=== PATIENT | female | born 1960 | race African-American/Black ===

== ENCOUNTER 2022-07-30 10:23 | Inpatient (IN) ==
[2022-07-30] MEDS ORDERED: HYDRALAZINE HCL IVP ONE ×2 (10:41→12:21)
[2022-07-30] MEDS ORDERED: REGLAN IVP ONE ×2 (10:41→15:59)
--- NOTE | 2022-07-30 10:47 | ED.PDOC ---
General ED Provider: Dr. JOANNA PEREZ MD Chief Complaint: Nausea/Vomiting Stated Complaint: mild to mod off and on NV for one day w/ diffuse nonrad abdominal cramps, +dizzy, no loc, given zofran by ems, blood sugar 365, not on home oxygen, hx cva and right residual weakness, hx htn and dm and hysterectomy Time Seen by Provider: 07/30/22 10:28 Mode of Arrival: Ambulance Information Source: Patient Primary Care Provider: SHANI GUTIERREZ APRN Nursing and Triage Documentation Reviewed and Agree: Yes Does patient meet sepsis criteria?: No System Inflammatory Response Syndrome: Not Applicable Sepsis Protocol: For patient's 13 years and over: Temp is 96.8 and below OR 101 and greater Pulse >90 BPM Resp >20/minute Acutely Altered Mental Status Are patient's symptoms suggestive of a new infection, such as: -Pneumonia -Skin, Soft Tissue -Endocarditis -UTI -Bone, Joint Infection -Implantable Device -Acute Abdominal Infection -Wound Infection -Meningitis -Blood Stream Catheter Infection -Unknown Review of Systems Review Of Systems Constitutional: Denies Fever Eyes: Denies Vision change Ears, Nose, Mouth, Throat: Denies Throat pain Respiratory: Denies Short of air or Wheezing Cardiac: Denies Chest pain GI: Reports Abdominal pain and Vomiting : Denies Frequency Musculoskeletal: Denies Neck pain Skin: Denies Rash or Cyanosis Neurological: Denies Cognitive dysfunction, Headache, Numbness or Tingling All Other Systems: Other [facility] Medical History Decreased GFR Essential hypertension Fatigue High cholesterol Insomnia Knee pain, bilateral Left knee pain Mixed hyperlipidemia Obesity (BMI 30-39.9) Right knee pain Screening mammography declined Seasonal allergies Type 2 diabetes mellitus with hemoglobin A1c goal of less than 7.0% Family History Mother Age: 84 Diabetes Hypertension Renal failure Social History Smoking and tobacco status: Current some day smoker Tobacco: How many years used: 4 Passive smoking exposure: Yes Smoking status start date: 03/15/18 Quit status: considering quitting Alcohol intake: former Counseling given: No Nicolette/restorationist: ORTHODOX Special nicolette needs: No Agree to transfusion: Yes Adopted: No Caregiver/support person: No Foster care: No Housing: apartment Marital status: W / Lives independently: Yes Number of children: 4 Number of grandchildren: 1 Highest education level completed: high school graduate Financial difficulty paying for basics: very hard service: No CHCF: No Current occupational status: unemployed Pets and animals: No Leisure activites: other History of recent travel: Yes (From [facility] to [place]) Sexually active: No Do you think of yourself as: straight/heterosexual Current gender identity: female Seatbelt use: always Drives intoxicated or rides with intoxicated motor vehicle escort driver: No Current diet type/program: regular Well-balanced diet: about half the time Caffeine: No Eating out: 1-3 times/week Reads food labels: sometimes During the past year weight has: other Water heater temperature set < 120 degrees: Yes Working smoke detector in home: Yes Fire extinguisher in home: Yes Carbon monoxide detector in home: Yes Firearms in home: Yes What type of physical activity do you participate in?: walking and swimming Physical activity functional status: independent ambulation How many days of moderate to strenuous exercise, like a brisk walk, did you do in the last 7 days: 1 Female Reproductive History Menstrual Hx Hysterectomy: Yes Hx Tubal Ligation: No Date of menopause: 03/16/84 Physical Exam Physical Exam Appearance: Reports No pain distress Ill-appearing: None Pain Distress: None Eyes: Reports ELROY, EOMI and Conjunctiva clear ENT: Reports Oropharynx normal Neck: Supple Respiratory: Reports Airway patent, Breath sounds clear and Breath sounds equal Cardiovascular: Reports RRR GI/: Reports Soft and Nontender Musculoskeletal: Reports No edema and 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) Skin: Reports Warm and Dry Neurological: Reports Alert and Oriented Psychiatric: Reports Affect appropriate Interpretation Radiology Interpretation Radiology Interpretation By: Radiologist Exam Interpreted: CT Scan Xray Comments: no brain bleed, no abd obstruction or free air EKG Interpretation Time of EKG #1: 16:15 Rate: Normal Rhythm: Sinus Interpretation: lvh and prolonged QTc, no stemi Critical Care Note Critical Care Note Total Critical Care Time (mins): 0 Course Course Hematology/Chemistry: 07/30/22 10:55 07/30/22 10:55 Orders, Labs, Meds: Lab Review 07/30/22 07/30/22 07/30/22 10:55 10:55 10:55 WBC 8.53 RBC 3.95 L Hgb 10.5 L Hct 33.8 L MCV 85.6 MCH 26.6 L MCHC 31.1 L RDW Coeff of Shanita 13.0 Plt Count 305 Immature Gran % (Auto) 0.5 Neut % (Auto) 86.4 H Lymph % (Auto) 9.4 L [place] % (Auto) 3.4 Eos % (Auto) 0.1 Baso % (Auto) 0.2 Neut # (Auto) 7.4 H Lymph # (Auto) 0.8 [place] # (Auto) 0.3 L Eos # (Auto) 0.0 Baso # (Auto) 0.0 Immature Gran # (Auto) 0.0 Sodium 137.1 Potassium 3.15 L Chloride 99.1 Carbon Dioxide 28.6 Anion Gap 12.55 BUN 9.7 Creatinine 0.65 Estimated GFR (MDRD) 113.00 BUN/Creatinine Ratio 14.92 Glucose 298.1 H Lactic Acid 1.28 Calcium 9.40 Magnesium Total Bilirubin 0.53 AST 29.7 ALT 16.0 Alkaline Phosphatase 82.6 Troponin I < 0.012 Total Protein 8.22 H Albumin 4.30 Globulin 3.92 Albumin/Globulin Ratio 1.09 Lipase 78.9 Urine Color Urine Clarity Urine pH Ur Specific [place] Urine Protein Urine Glucose (UA) Urine Ketones Urine Blood Urine Nitrite Urine Bilirubin Urine Urobilinogen Ur Leukocyte Esterase Urine Opiates Screen Ur Oxycodone Screen Urine Methadone Screen Ur Propoxyphene Screen Ur Barbiturates Screen U Tricyclic Antidepress Ur Phencyclidine Scrn Ur Amphetamine Screen U Methamphetamines Scrn U Benzodiazepines Scrn Urine Cocaine Screen U Cannabinoids Screen 07/30/22 07/30/22 07/30/22 10:55 12:40 12:40 WBC RBC Hgb Hct MCV MCH MCHC RDW Coeff of Shanita Plt Count Immature Gran % (Auto) Neut % (Auto) Lymph % (Auto) [place] % (Auto) Eos % (Auto) Baso % (Auto) Neut # (Auto) Lymph # (Auto) [place] # (Auto) Eos # (Auto) Baso # (Auto) Immature Gran # (Auto) Sodium Potassium Chloride Carbon Dioxide Anion Gap BUN Creatinine Estimated GFR (MDRD) BUN/Creatinine Ratio Glucose Lactic Acid Calcium Magnesium 1.31 L Total Bilirubin AST ALT Alkaline Phosphatase Troponin I Total Protein Albumin Globulin Albumin/Globulin Ratio Lipase Urine Color Yellow Urine Clarity Clear Urine pH 7.5 Ur Specific [place] 1.015 Urine Protein Negative Urine Glucose (UA) 2+ H Urine Ketones 2+ H Urine Blood Negative Urine Nitrite Negative Urine Bilirubin Negative Urine Urobilinogen 1.0 H Ur Leukocyte Esterase Negative Urine Opiates Screen Negative Ur Oxycodone Screen Negative Urine Methadone Screen Negative Ur Propoxyphene Screen Negative Ur Barbiturates Screen Negative U Tricyclic Antidepress Negative Ur Phencyclidine Scrn Negative Ur Amphetamine Screen Negative U Methamphetamines Scrn Negative U Benzodiazepines Scrn Negative Urine Cocaine Screen Negative U Cannabinoids Screen Negative Orders Category Date Time Status EKG-(ED ONLY) Stat CARDIO 07/30/22 10:41 Completed Straight [STRAIGHT CATH INSERTION] ONCE CARE 07/30/22 12:28 Active CBC W/ AUTO DIFF Stat LAB 07/30/22 10:55 Completed CMP [COMPREHENSIVE METABOLIC PANEL] Stat LAB 07/30/22 10:55 Completed DRUG SCREEN, URINE, RAPID Stat LAB 07/30/22 12:40 Completed LACTIC ACID Stat LAB 07/30/22 10:55 Completed LIPASE Stat LAB 07/30/22 10:55 Completed MAGNESIUM Stat LAB 07/30/22 10:55 Completed TROPONIN I Stat LAB 07/30/22 10:55 Completed URINALYSIS C & S IF INDICATED Stat LAB 07/30/22 12:40 Completed Hydralazine HCl MEDS 07/30/22 10:41 Discontinued 10 mg IVP ONCE ONE Hydralazine HCl MEDS 07/30/22 12:21 Discontinued 10 mg IVP ONCE ONE Labetalol HCl [Trandate] MEDS 07/30/22 13:24 Discontinued 10 mg IVP ONCE ONE Labetalol HCl [Trandate] MEDS 07/30/22 14:52 Discontinued 20 mg IVP ONCE ONE Mag-Al Plus//Lidocaine [Gi Cocktail] MEDS 07/30/22 13:28 Discontinued 30 ml PO ONCE ONE Magnesium Sulfate Bag [Magnesium Sulfate 1 gm/100 ml MEDS 07/30/22 15:54 Active D5w] 1 gm in 100 ml IV ONCE Magnesium Sulfate Vial [Magnesium Sulfate 1 gm/2 ml MEDS 07/30/22 15:18 Discontinued Vial] 1 gm IVP ONCE ONE Metoclopramide HCl [Reglan] MEDS 07/30/22 10:41 Discontinued 10 mg IVP ONCE ONE Metoclopramide HCl [Reglan] MEDS 07/30/22 15:59 Discontinued 10 mg IVP ONCE ONE Nicardipine in NaCl, Iso-Osm [Cardene 20 mg/200 ml NaCl MEDS 07/30/22 16:00 Active ] 20 mg in 200 ml IV TITRATION Pantoprazole Sodium [Protonix IV] MEDS 07/30/22 14:01 Discontinued 40 mg IVP ONCE ONE Potassium Chloride [K-Dur] MEDS 07/30/22 11:55 Discontinued 40 meq PO ONCE ONE Sodium Chloride 0.9% [Sodium Chloride] 1,000 ml MEDS 07/30/22 14:[address] ABDOMEN/PELVIS WO CONTRAST Stat RADS 07/30/22 10:[address] HEAD W/O CONTRAST Stat RADS 07/30/22 10:41 Completed Medications Generic Name Dose Route Start Last Admin Trade Name Freq PRN Reason Stop Dose Admin Magnesium Sulfate/Dextrose 1 gm in 100 mls @ 100 mls/hr 07/30/22 15:54 07/30/22 15:58 Magnesium Sulfate 1 Gm/100 Ml D5w IV 07/30/22 16:53 100 mls/hr ONCE STA Administration Nicardipine/Sodium Chloride 20 mg in 200 mls @ 50 mls/hr 07/30/22 16:00 07/30/22 16:08 Cardene 20 Mg/200 Ml Nacl IV 5 mg/hr TITRATION JOE 50 mls/hr Administration Protocol 5 MG/HR Discontinued Medications Generic Name Dose Route Start Last Admin Trade Name Freq PRN Reason Stop Dose Admin Al Hydroxide/Mg Hydroxide 30 ml 07/30/22 13:28 07/30/22 13:34 Mag-Al Plus//Lidocaine 30 Ml Btl PO 07/30/22 13:29 30 ml ONCE ONE Administration Hydralazine HCl 10 mg 07/30/22 10:41 07/30/22 10:56 Hydralazine Hcl 20 Mg/Ml Sdv IVP 07/30/22 10:42 10 mg ONCE ONE Administration Hydralazine HCl 10 mg 07/30/22 12:21 07/30/22 12:24 Hydralazine Hcl 20 Mg/Ml Sdv IVP 07/30/22 12:22 10 mg ONCE ONE Administration Sodium Chloride 1,000 mls @ 1,000 mls/hr 07/30/22 14:02 07/30/22 14:07 Sodium Chloride IV 07/30/22 15:01 1,000 mls/hr BOLUS STA Administration Labetalol HCl 10 mg 07/30/22 13:24 07/30/22 13:35 Labetalol Hcl 20 Mg/4 Ml Disp.Syrin IVP 07/30/22 13:25 10 mg ONCE ONE Administration Labetalol HCl 20 mg 07/30/22 14:52 07/30/22 15:07 Labetalol Hcl 20 Mg/4 Ml Disp.Syrin IVP 07/30/22 14:53 20 mg ONCE ONE Administration Magnesium Sulfate 1 gm 07/30/22 15:18 07/30/22 15:59 Magnesium Sulfate Vial 1 Gm/2 Ml Vial IVP 07/30/22 15:19 Not Given ONCE ONE Metoclopramide HCl 10 mg 07/30/22 10:41 07/30/22 10:55 Metoclopramide Hcl 10 Mg/2 Ml IVP 07/30/22 10:42 10 mg ONCE ONE Administration Metoclopramide HCl 10 mg 07/30/22 15:59 07/30/22 16:08 Metoclopramide Hcl 10 Mg/2 Ml IVP 07/30/22 16:00 10 mg ONCE ONE Administration Pantoprazole Sodium 40 mg 07/30/22 14:01 07/30/22 14:07 Pantoprazole Sodium 40 Mg Vial IVP 07/30/22 14:02 40 mg ONCE ONE Administration Potassium Chloride 40 meq 07/30/22 11:55 07/30/22 12:12 Potassium Chloride 20 Meq Tab PO 07/30/22 11:56 Not Given ONCE ONE Vital Signs: Temp Pulse Resp BP Pulse Ox 07/30/22 10:30 97.9 F 79 16 213/99 H 100 Discharge Plan Discharge Patient Disposition: ADMITTED INPATIENT Discharge Problem: High blood pressure, Diabetes, Vomiting Prescriptions: No Action Ozempic 0.25 mg or 0.5 mg(2 mg/1.5 mL) pen injector 0.25 mg subcut QWEEK Qty: 1.5 0RF Rx Instructions: for 4 doses then increase to 0.5 mg for 4 doses clonidine HCl 0.1 mg tablet 0.2 mg PO BID Label Comments: TAKE 1 TABLET BY MOUTH TWICE DAILY atorvastatin [Lipitor] 10 mg Tablet 10 mg PO BEDTIME ibuprofen 800 mg Tablet 800 mg PO QID valacyclovir 500 mg Tablet 500 mg PO BID aspirin 81 mg Capsule,Delayed Release(Dr/Ec) 81 mg PO DAILY cephalexin 500 mg capsule 500 mg PO 4XD ferrous sulfate 325 mg (65 mg iron) Tablet 325 mg PO DAILY fluoxetine [Prozac] 20 mg Capsule 20 mg PO DAILY oxycodone 5 mg tablet 5 mg PO Q4HR PRN (Reason: Pain) duloxetine 60 mg Capsule,Delayed Release(Dr/Ec) 60 mg PO DAILY Januvia 100 mg tablet 100 mg PO DAILY Label Comments: TAKE 1 TABLET BY MOUTH EVERY DAY cholecalciferol (vitamin D3) [Vitamin D3] 125 mcg (5,000 unit) Tablet 125 mcg PO DAILY (DME) lancets [OneTouch Delica Plus Lancet] 30 gauge misc See Rx Instructions .ROUTE Rx Instructions: Use to test blood sugar three times a day (DME) iVantage Health AnalyticsTouch Ultra Test Strip See Rx Instructions .ROUTE Rx Instructions: As directed albuterol sulfate 90 mcg/actuation HFA aerosol inhaler 1 puff inhalation ONCE PRN (Reason: shortness of breath or wheezing) Qty: 6.7 0RF clopidogrel 75 mg tablet 75 mg PO QDAY Qty: 90 0RF trazodone 100 mg tablet 100 mg PO QHS PRN (Reason: insomnia) Qty: 30 0RF albuterol sulfate 2.5 mg /3 mL (0.083 %) solution for nebulization 2.5 mg inhalation Q6H PRN (Reason: shortness of breath or wheezing) Qty: 90 0RF (DME) nebulizers [Altera Nebulizer System] Misc See Rx Instructions .ROUTE Qty: 1 0RF Rx Instructions: As directed Did you review [place] [employer] for ALL controlled substances?: Not Applicable ED Provider: JOANNA PEREZ Condition: Stable Physician Progress Note: []full admit to tele hospitalist for intractable NV and high blood pressure, despite multiple drug regimen attempted, mag sulfate and potassium given for low levels, protonix for gerd
[2022-07-30 11:05] LABS: BASOPHILS % (AUTO) 0.2 % (0.0-3.0); EOSINOPHILS % (AUTO) 0.1 % (0.0-7.0); HEMATOCRIT 33.8 % (37.0-47.0); HEMOGLOBIN 10.5 g/dl (12.0-16.0); IMMATURE GRANULOCYTE % (AUTO) 0.5 % (0.0-5.0); LYMPHOCYTES # (AUTO) 0.8 K/uL (0.60-3.4); LYMPHOCYTES % (AUTO) 9.4 (10.0-50.0); MEAN CORPUSCULAR HEMOGLOBIN 26.6 pg (27.0-31.0); MEAN CORPUSCULAR HGB CONC 31.1 (31.8-35.4); MEAN CORPUSCULAR VOLUME 85.6 fl (81.0-99.0); MONOCYTES # (AUTO) 0.3 K/uL (0.4-2.0); MONOCYTES % (AUTO) 3.4 (0-10); NEUTROPHILS # (AUTO) 7.4 K/ul (2.0-6.9); NEUTROPHILS % (AUTO) 86.4 % (42.2-75.2); PLATELET COUNT 305 10^3/uL (140-440); RED BLOOD COUNT 3.95 10^6/ul (4.20-5.40); WHITE BLOOD COUNT 8.53 K/ul (4.6-10.2)
[2022-07-30 11:24] LABS: ALKALINE PHOSPHATASE 82.6 U/L (53-141); ASPARTATE AMINO TRANSFERASE 29.7 U/L (14-36); BILIRUBIN,TOTAL 0.53 mg/dL (0.2-1.3); BLOOD UREA NITROGEN 9.7 mg/dL (7-17); CARBON DIOXIDE 28.6 mmol/L (22-30.0); CHLORIDE 99.1 mmol/L (98-107); CREATININE 0.65 mg/dL (0.60-1.30); GLUCOSE 298.1 mg/dL (74-106); LIPASE 78.9 U/L (23-300); POTASSIUM 3.15 mmol/L (3.5-5.1); SODIUM 137.1 mmol/L (134.5-145); TOTAL PROTEIN 8.22 g/dL (6.3-8.2)
[2022-07-30 11:35] LABS: TROPONIN I < 0.012 ng/ml (0.0000-0.120)
--- NOTE | 2022-07-30 11:47 | CT ---
EXAM: CT SCAN OF HEAD WITHOUT CONTRAST. HISTORY: Dizzy COMPARISON: 07/04/2022 TECHNIQUE: Axial scans acquired at 5 mm slice thicknesses. FINDINGS: There is no intra or extra-axial hemorrhage seen. No mass or shift of midline structures is seen. There is mild cortical volume loss. There is decreased attenuation seen in the periventric ular white matter consistent with chronic microvascular ischemic changes. No acute large vessel cere brovascular accident is seen. Lacunar infarction in the anterior limb of the right internal capsule is again noted Ventricles appear normal. The internal auditory canals are symmetric. The mastoids are normally pneumatized. The paranasal sinuses are normally pneumatized. The globes and orbits are symmetric and unremarkable. The calvarium is intact. The sella turcica is unremarkable. IMPRESSION: 1. Changes of aging as described above with no acute intracranial abnormality. All CT scans are performed using dose optimization techniques as appropriate to the performed exam an d include at least one of the following: Automated exposure control, adjustment of the mA and/or kV according t o size, and the use of iterative reconstruction technique.
--- NOTE | 2022-07-30 11:51 | CT ---
EXAM: CT ABDOMEN PELVIS WITHOUT CONTRAST HISTORY: Vomiting COMPARISON: None TECHNIQUE: Serial axial images of the abdomen pelvis were performed from the lung bases through the inferior pelvis without contrast. These were viewed in multiple planes. FINDINGS: Lung bases are clear. There is a small hiatal hernia. Evaluation is limited due to lack of contrast. Liver is unremarkable. The gallbladder is minimally distended. Adrenal glands are normal. Spleen is unremarkable. Kidneys are normal with no visualize d mass or stone. Pancreas is unremarkable. The stomach is minimally distended. Small bowel in the abdomen pelvis is unremarkable. The colon is unremarkable. The appendix is not v isualized with no inflammation or inflammatory changes present in the right lower quadrant. Urinary bladder is distended. Pelvic soft tissues are normal. There is no free air, free fluid or lymphaden opathy. There is moderate calcific atherosclerotic disease. There is moderate degenerative disease. IMPRESSION: 1. No acute intra-abdominal or pelvic process to account for patient's symptoms. 2. Small hiatal hernia. 3. Mild to moderate atherosclerotic disease. All CT scans are performed using dose optimization techniques as appropriate to the performed exam an d include at least one of the following: Automated exposure control, adjustment of the mA and/or kV according t o size, and the use of iterative reconstruction technique.
[2022-07-30] MEDS: K-DUR PO ONE ×2 (12:08→12:12)
[2022-07-30 12:50] LABS: BILIRUBIN,URINE Negative (NEGATIVE); CLARITY,URINE Clear (CLEAR); COLOR,URINE Yellow (YELLOW); GLUCOSE, URINE (UA) 2+ (NEGATIVE); KETONES,URINE 2+ (NEGATIVE); LEUKOCYTE ESTERASE ,URINE Negative (NEGATIVE); NITRITE,URINE Negative (NEGATIVE); PH,URINE 7.5 (5-9); PROTEIN,URINE Negative (NEGATIVE); URINE, BLOOD Negative (NEGATIVE)
[2022-07-30 12:58] LABS: AMPHETAMINE SCREEN,URINE NEGATIVE (NEGATIVE); BARBITURATE SCREEN,URINE NEGATIVE (NEGATIVE); BENZODIAZEPINES SCREEN,URINE NEGATIVE (NEGATIVE); CANNABINOID SCREEN,URINE NEGATIVE (NEGATIVE); COCAIN SCREEN,URINE NEGATIVE (NEGATIVE); METHADONE URINE SCREEN NEGATIVE (NEGATIVE); METHAMPHETAMINES SCREEN,URINE NEGATIVE (NEGATIVE); OPIATE SCREEN,URINE NEGATIVE (NEGATIVE); OXYCODONE URINE SCREEN NEGATIVE (NEGATIVE); PHENCYCLIDINE SCREEN,URINE NEGATIVE (NEGATIVE); PROPOXYPHENE URINE SCREEN NEGATIVE (NEGATIVE); TRICYCLIC ANTIDEPRESSANTS URIN NEGATIVE (NEGATIVE)
[2022-07-30] MEDS ORDERED: TRANDATE IVP ONE ×2 (13:24→14:52)
[2022-07-30] MEDS ORDERED: GI COCKTAIL PO ONE (13:28)
[2022-07-30] MEDS ORDERED: PROTONIX IV IVP ONE (14:01)
[2022-07-30] MEDS ORDERED: SODIUM CHLORIDE 1,000 ML IV STA (14:02)
[2022-07-30] MEDS ORDERED: MAGNESIUM SULFATE 1 GM/2 ML VIAL IVP ONE (15:18)
[2022-07-30] MEDS ORDERED: MAGNESIUM SULFATE 1 GM/100 ML D5W 1 GM/100 ML BAG IV STA (15:54)
[2022-07-30] MEDS: CARDENE 20 MG/200 ML NACL 20 MG/200 ML BAG IV SCH (16:08)
[2022-07-30] MEDS ORDERED: ALBUTEROL 0.083% NEB NEB PRN (16:23)
[2022-07-30] MEDS ORDERED: CARDENE 20 MG/200 ML NACL 20 MG/200 ML BAG IV SCH (16:30)
[2022-07-30] MEDS ORDERED: ASPIRIN CHEWABLE PO ONE (18:19)
[2022-07-30] MEDS ORDERED: NITROSTAT SL STA (18:19)
[2022-07-30 20:36] LABS: SARS COV-2 RNA RAPID NAAT NEGATIVE (NEGATIVE)
[2022-07-30 22:02] VITALS: BMI 36.3
[2022-07-30] MEDS: CATAPRES PO SCH (22:28)
[2022-07-30] MEDS: VALTREX PO SCH (22:28)
[2022-07-30] MEDS: SODIUM CHLORIDE 1,000 ML IV SCH (22:28)
[2022-07-30] MEDS: LIPITOR PO SCH (22:28)
[2022-07-30] MEDS: REGLAN IVP SCH (22:29)
[2022-07-30] MEDS: OXYCODONE PO PRN (23:27)
[2022-07-30] MEDS: DESYREL PO PRN (23:27)
[2022-07-31] MEDS ORDERED: TRANDATE IVP ONE (02:55)
[2022-07-31] MEDS: HUMULIN R SUBCUT PRN ×4 (06:14→22:33)
[2022-07-31 06:28] LABS: BASOPHILS % (AUTO) 0.2 % (0.0-3.0); EOSINOPHILS % (AUTO) 0.2 % (0.0-7.0); HEMATOCRIT 31.2 % (37.0-47.0); IMMATURE GRANULOCYTE # (AUTO) 0.1 (0.0-1.0); IMMATURE GRANULOCYTE % (AUTO) 0.6 % (0.0-5.0); LYMPHOCYTES % (AUTO) 16.5 (10.0-50.0); MEAN CORPUSCULAR HEMOGLOBIN 26.9 pg (27.0-31.0); MEAN CORPUSCULAR HGB CONC 32.1 (31.8-35.4); MEAN CORPUSCULAR VOLUME 83.9 fl (81.0-99.0); MONOCYTES % (AUTO) 8.3 (0-10); NEUTROPHILS # (AUTO) 9.1 K/ul (2.0-6.9); NEUTROPHILS % (AUTO) 74.2 % (42.2-75.2); PLATELET COUNT 315 10^3/uL (140-440); RDW COEFFICIENT OF VARIATION 13.2 % (11.6-14.8); RED BLOOD COUNT 3.72 10^6/ul (4.20-5.40); WHITE BLOOD COUNT 12.23 K/ul (4.6-10.2)
[2022-07-31] MEDS ORDERED: NON-FORMULARY MEDICATION (Aspirin 81 mg Capsule,Delayed Release(Dr/Ec)) PO SCH (09:00)
[2022-07-31] MEDS ORDERED: NON-FORMULARY MEDICATION (Ferrous Sulfate 325 mg (65 mg iron) Tablet) PO SCH (09:00)
--- NOTE | 2022-07-31 09:25 | PCM.PROG ---
Date Seen by Provider: 07/31/22 Time Seen by Provider: 09:05 Subjective: Patient inactive. Tolerating PO without nausea or emesis. Denies chest pain. BP still elevated. Objective: Vitals: T=97 F, P=82, R=15, OO=656/109, SPO2=95 Alert, oriented and in NAD. HEENT: [] Oral mucosa moist. Neck: [] Lungs: [] Clear. BS equal. CVS: [] RRR. Abdomen: []Soft, nontender. Extremities: [] Neurological: [] Skin: [] Lab/Tests/Diagnostic Imaging: [] (1) Essential hypertension: Status: Acute Code(s): I10 - Essential (primary) hypertension SNOMED Code(s): 08391790 Assessment: Remains elevated. (2) Vomiting: Status: Acute Code(s): R11.10 - Vomiting, unspecified SNOMED Code(s): 096788345 Assessment: Resolved. (3) Status post total knee replacement: Status: Acute Code(s): Z96.659 - Presence of unspecified artificial knee joint SNOMED Code(s): 9598801759259 Assessment: Patient not ambulating or out of bed as she should be. Plan: Will ask PT to see patient for strengthening and conditioning. Resume clonidine as at home and observe blood pressure. Vomiting resolved.
[2022-07-31 09:26] LABS: ALANINE AMINOTRANSFERASE 14.8 U/L (0-35); ALBUMIN 3.76 g/dL (3.5-5.0); ALKALINE PHOSPHATASE 65.3 U/L (53-141); ASPARTATE AMINO TRANSFERASE 30.6 U/L (14-36); BILIRUBIN,TOTAL 0.52 mg/dL (0.2-1.3); BLOOD UREA NITROGEN 10.8 mg/dL (7-17); CALCIUM 8.66 mg/dL (8.4-10.2); CARBON DIOXIDE 27.7 mmol/L (22-30.0); CHLORIDE 99.7 mmol/L (98-107); CREATININE 0.94 mg/dL (0.60-1.30); GLUCOSE 228.9 mg/dL (74-106); SODIUM 134.7 mmol/L (134.5-145); TOTAL PROTEIN 7.63 g/dL (6.3-8.2)
[2022-07-31 09:34] LABS: POTASSIUM 2.56 mmol/L (3.5-5.1)
[2022-07-31] MEDS ORDERED: K-DUR PO ONE ×2 (09:36→17:00)
[2022-07-31] MEDS: REGLAN IVP SCH ×3 (10:13→20:28)
[2022-07-31] MEDS: VALTREX PO SCH ×2 (10:13→20:26)
[2022-07-31] MEDS: FERROUS SULFATE PO SCH (10:14)
[2022-07-31] MEDS: CYMBALTA PO SCH (10:14)
[2022-07-31] MEDS: PROZAC PO SCH (10:14)
[2022-07-31] MEDS: PLAVIX PO SCH (10:14)
[2022-07-31] MEDS: CATAPRES PO SCH ×2 (10:14→20:27)
[2022-07-31] MEDS: ASPIRIN EC PO SCH (10:14)
[2022-07-31] MEDS: SODIUM CHLORIDE 1,000 ML IV SCH (12:38)
[2022-07-31] MEDS: CARDENE 20 MG/200 ML NACL 20 MG/200 ML BAG IV SCH (15:30)
[2022-07-31] MEDS: LIPITOR PO SCH (20:26)
[2022-07-31] MEDS: OXYCODONE PO PRN (20:34)
[2022-07-31] MEDS: DESYREL PO PRN (20:34)
[2022-08-01 05:51] LABS: BASOPHILS # (AUTO) 0.1 K/uL (0-0.2); BASOPHILS % (AUTO) 0.6 % (0.0-3.0); EOSINOPHILS # (AUTO) 0.1 K/ul (0.0-0.7); HEMATOCRIT 33.6 % (37.0-47.0); HEMOGLOBIN 10.2 g/dl (12.0-16.0); IMMATURE GRANULOCYTE # (AUTO) 0.1 (0.0-1.0); IMMATURE GRANULOCYTE % (AUTO) 0.6 % (0.0-5.0); LYMPHOCYTES # (AUTO) 2.3 K/uL (0.60-3.4); LYMPHOCYTES % (AUTO) 24.2 (10.0-50.0); MEAN CORPUSCULAR HEMOGLOBIN 27.1 pg (27.0-31.0); MEAN CORPUSCULAR HGB CONC 30.4 (31.8-35.4); MEAN CORPUSCULAR VOLUME 89.1 fl (81.0-99.0); MONOCYTES # (AUTO) 0.8 K/uL (0.4-2.0); MONOCYTES % (AUTO) 8.3 (0-10); NEUTROPHILS # (AUTO) 6.2 K/ul (2.0-6.9); NEUTROPHILS % (AUTO) 65.3 % (42.2-75.2); PLATELET COUNT 258 10^3/uL (140-440); RDW COEFFICIENT OF VARIATION 13.5 % (11.6-14.8); RED BLOOD COUNT 3.77 10^6/ul (4.20-5.40); WHITE BLOOD COUNT 9.45 K/ul (4.6-10.2)
[2022-08-01 06:04] LABS: ALANINE AMINOTRANSFERASE 16.1 U/L (0-35); ALBUMIN 3.7 g/dL (3.5-5.0); ALKALINE PHOSPHATASE 65.3 U/L (53-141); ASPARTATE AMINO TRANSFERASE 24.6 U/L (14-36); BILIRUBIN,TOTAL 0.48 mg/dL (0.2-1.3); BLOOD UREA NITROGEN 19.1 mg/dL (7-17); CALCIUM 9.04 mg/dL (8.4-10.2); CARBON DIOXIDE 26.8 mmol/L (22-30.0); CHLORIDE 100.3 mmol/L (98-107); CREATININE 1.91 mg/dL (0.60-1.30); GLUCOSE 168.3 mg/dL (74-106); POTASSIUM 2.87 mmol/L (3.5-5.1); SODIUM 134.7 mmol/L (134.5-145); TOTAL PROTEIN 7.16 g/dL (6.3-8.2)
[2022-08-01] MEDS: HUMULIN R SUBCUT PRN ×3 (06:22→23:29)
[2022-08-01] MEDS ORDERED: K-DUR PO ONE ×3 (08:31→21:00)
[2022-08-01] MEDS: ASPIRIN EC PO SCH (09:00)
[2022-08-01] MEDS: PROZAC PO SCH (09:00)
[2022-08-01] MEDS: CYMBALTA PO SCH (09:00)
[2022-08-01] MEDS: PLAVIX PO SCH (09:00)
[2022-08-01] MEDS: VALTREX PO SCH ×2 (09:00→20:34)
[2022-08-01] MEDS: CATAPRES PO SCH ×2 (09:00→20:34)
[2022-08-01] MEDS: FERROUS SULFATE PO SCH (09:00)
[2022-08-01] MEDS: REGLAN IVP SCH ×3 (09:01→21:38)
--- NOTE | 2022-08-01 14:00 | PCM.PROG ---
Date Seen by Provider: 08/01/22 Time Seen by Provider: 13:58 Subjective: dx. vomiting, hypertension, prolonged QT, low potassium Objective: Vitals: T=95.7 F, P=56, R=13, RK=366/62, EYX5=116 HEENT: []conjunctiva clear Neck: []supple Lungs: [] no respiratory distress CVS: [] Abdomen: [] Extremities: []dry Neurological: []alert and oriented Skin: [] Lab/Tests/Diagnostic Imaging: [] prolong QTc (1) Essential hypertension: Status: Acute Code(s): I10 - Essential (primary) hypertension SNOMED Code(s): 75621866 (2) Vomiting: Status: Acute Code(s): R11.10 - Vomiting, unspecified SNOMED Code(s): 749447150 (3) Status post total knee replacement: Status: Acute Code(s): Z96.659 - Presence of unspecified artificial knee joint SNOMED Code(s): 7552396302700 Plan: stop prozac, am ekg and labs
[2022-08-01 16:45] LABS: MAGNESIUM 1.55 mg/dL (1.6-2.3)
[2022-08-01 17:17] LABS: THYROID STIMULATING HORMONE 0.679 uIU/L (0.465-4.68)
[2022-08-01] MEDS: DESYREL PO PRN (20:33)
[2022-08-01] MEDS: LIPITOR PO SCH (20:34)
[2022-08-01] MEDS: TYLENOL PO PRN (20:34)
[2022-08-01] MEDS: OXYCODONE PO PRN (20:34)
[2022-08-01] MEDS ORDERED: POTASSIUM CHL 10% ORAL SOL PO ONE (21:00)
[2022-08-02 06:49] LABS: ALANINE AMINOTRANSFERASE 15.8 U/L (0-35); ALBUMIN 3.48 g/dL (3.5-5.0); ALKALINE PHOSPHATASE 58.5 U/L (53-141); ASPARTATE AMINO TRANSFERASE 24.9 U/L (14-36); BILIRUBIN,TOTAL 0.47 mg/dL (0.2-1.3); BLOOD UREA NITROGEN 26.4 mg/dL (7-17); CALCIUM 8.93 mg/dL (8.4-10.2); CARBON DIOXIDE 24.9 mmol/L (22-30.0); CHLORIDE 103.7 mmol/L (98-107); CREATININE 1.34 mg/dL (0.60-1.30); GLUCOSE 161.2 mg/dL (74-106); POTASSIUM 4.22 mmol/L (3.5-5.1); SODIUM 135.2 mmol/L (134.5-145); TOTAL PROTEIN 6.81 g/dL (6.3-8.2)
[2022-08-02] MEDS: CATAPRES PO SCH ×2 (08:29→20:48)
[2022-08-02] MEDS: ASPIRIN EC PO SCH (08:29)
[2022-08-02] MEDS: VALTREX PO SCH ×2 (08:29→20:47)
[2022-08-02] MEDS: CYMBALTA PO SCH (08:29)
[2022-08-02] MEDS: FERROUS SULFATE PO SCH (08:29)
[2022-08-02] MEDS: PLAVIX PO SCH (08:29)
[2022-08-02] MEDS: REGLAN IVP SCH ×2 (11:39→15:38)
[2022-08-02] MEDS: HUMULIN R SUBCUT PRN ×2 (12:14→22:53)
--- NOTE | 2022-08-02 12:49 | PCM.DC ---
Final Diagnosis: vomiting, hypertension, prolonged QT, hypokalemia 40 min spent on discharge summary Physical Exam Appearance: Well-appearing Ill-appearing: None Pain Distress: None Eyes: Conjunctiva clear ENT: Oropharynx normal Neck: Supple Respiratory: Airway patent and Breath sounds clear Cardiovascular: RRR GI/: Nontender Musculoskeletal: ROM intact Skin: Warm and Dry Neurological: Alert and Oriented Psychiatric: Affect appropriate (1) Essential hypertension: Status: Acute Code(s): I10 - Essential (primary) hypertension SNOMED Code(s): 76109858 (2) Vomiting: Status: Acute Code(s): R11.10 - Vomiting, unspecified SNOMED Code(s): 814758122 (3) Status post total knee replacement: Status: Acute Code(s): Z96.659 - Presence of unspecified artificial knee joint SNOMED Code(s): 2689714096495 Reason for Hospitalization: vomiting and uncontrolled blood pressure Prognosis/Condition at Discharge: good Medications at Discharge: losartan, metoprolol, decrease prosac and clonidine, other home meds Lab/Diagnostics: improved QTc on today's EKG Education Provided to Patient and Family: blood pressure control Follow-ups: your doctor Discharge Disposition: Home Hospital Course: resolved vomiting, improved blood pressure control Plan: see your doctor, for med review
[2022-08-02] MEDS: PROZAC PO SCH (14:04)
[2022-08-02] MEDS: COZAAR PO SCH (14:04)
--- NOTE | 2022-08-02 16:03 | PCM.PROG ---
Date Seen by Provider: 08/02/22 Time Seen by Provider: 16:01 Subjective: dx hypertension, prolonged QT Objective: Vitals: T=95.6 F, P=78, R=17, ZQ=835/72, PBE7=040 HEENT: []conjunctiva clear Neck: []supple Lungs: [] clear CVS: []RRR Abdomen: []soft Extremities: [] Neurological: []alert Skin: [] Lab/Tests/Diagnostic Imaging: [] (1) Essential hypertension: Status: Acute Code(s): I10 - Essential (primary) hypertension SNOMED Code(s): 45003566 (2) Vomiting: Status: Acute Code(s): R11.10 - Vomiting, unspecified SNOMED Code(s): 995426938 (3) Status post total knee replacement: Status: Acute Code(s): Z96.659 - Presence of unspecified artificial knee joint SNOMED Code(s): 1476769446457 Plan: discharged cancelled by Dr Padilla to geraldinein 2D echo, and monitor HR on new med regimen
[2022-08-02] MEDS: LOPRESSOR PO SCH (20:47)
[2022-08-02] MEDS: OXYCODONE PO PRN (20:48)
[2022-08-02] MEDS: DESYREL PO PRN (20:48)
[2022-08-02] MEDS: TYLENOL PO PRN (20:48)
[2022-08-02] MEDS: LIPITOR PO SCH (20:48)
[2022-08-03] MEDS: OXYCODONE PO PRN (05:46)
[2022-08-03 06:06] LABS: BLOOD UREA NITROGEN 20.7 mg/dL (7-17); CALCIUM 9.46 mg/dL (8.4-10.2); CARBON DIOXIDE 27.4 mmol/L (22-30.0); CHLORIDE 102.1 mmol/L (98-107); CREATININE 0.92 mg/dL (0.60-1.30); GLUCOSE 159.5 mg/dL (74-106); POTASSIUM 3.77 mmol/L (3.5-5.1); SODIUM 136.1 mmol/L (134.5-145)
[2022-08-03] MEDS: FERROUS SULFATE PO SCH (09:14)
[2022-08-03] MEDS: CATAPRES PO SCH (09:14)
[2022-08-03] MEDS: PROZAC PO SCH (09:14)
[2022-08-03] MEDS: VALTREX PO SCH (09:14)
[2022-08-03] MEDS: ASPIRIN EC PO SCH (09:14)
[2022-08-03] MEDS: CYMBALTA PO SCH (09:15)
[2022-08-03] MEDS: PLAVIX PO SCH (09:15)
[2022-08-03] MEDS: COZAAR PO SCH (09:15)
[2022-08-03] MEDS: LOPRESSOR PO SCH (09:15)
--- NOTE | 2022-08-03 10:18 | PCM.PROG ---
Date Seen by Provider: 08/03/22 Time Seen by Provider: 09:30 Subjective: No complaints. BP much better controlled. Patient having carotid doppler this AM. Objective: Vitals: T=97.3 F, P=57, R=18, JI=125/68, NPK6=981 Alert and in NAD. HEENT: [] Neck: [] Supple. Lungs: [] Chest clear and BS equal. CVS: [] RRR Abdomen: [] Extremities: [] No edema. Neurological: [] Intact. Skin: [] Lab/Tests/Diagnostic Imaging: [] (1) Essential hypertension: Status: Acute Code(s): I10 - Essential (primary) hypertension SNOMED Code(s): 69921347 (2) Vomiting: Status: Acute Code(s): R11.10 - Vomiting, unspecified SNOMED Code(s): 853006494 (3) Status post total knee replacement: Status: Acute Code(s): Z96.659 - Presence of unspecified artificial knee joint SNOMED Code(s): 7615621189652 Plan: Patient doing well. Discharge today after carotid study.
[2022-08-03 10:42] VITALS: BP 137/68; TEMP 96.6
--- NOTE | 2022-08-03 11:15 | US ---
EXAM: ULTRASOUND BILATERAL CAROTID DUPLEX HISTORY: Hypertension COMPARISON: None TECHNIQUE: Sonographic and color Doppler evaluation of the carotids were performed. FINDINGS: The right carotid is patent in appearance with mild to moderate atherosclerotic plaque visualized. The right ICA peak systolic velocity measures 93 cm/sec which is normal. The ICA / CCA peak systolic velocity ratio is 1.4 and ICA end-diastolic velocity is 28 cm/sec. The left carotid is patent in appearance with mild atherosclerotic plaque visualized. The left ICA peak systolic velocity measures 62 cm/sec which is normal. The left ICA / CCA peak systolic velocity ratio is 1.5 and ICA end-diastolic velocity is 23 cm/sec. Vertebral arteries demonstrate antegrade flow bilaterally. Color Doppler and wave spectral evaluation are normal. IMPRESSION: Mild to moderate atherosclerotic disease with no evidence of stenosis.
--- NOTE | 2022-08-04 08:41 | ECHO2D ---
Date of Exam: 08/02/2022 Ordering Physician: Tessa GUTIERREZ APRN/HOSPITALIST [facility] Room #: 105 Reason for Echo: PROLONGED QT, HTN, DM2 M-Mode Normal Adult Results LV Dimensions Normal Adult Results AoV Opening excursions >1.6 >1.6 LVEDD-base- 3.5-5.8 4.4 Ao root dimensions 2.0-3.7 3.9 LVESD-base- 3.1-4.6 L. Atrium dimensions 1.9-3.8 4.5 Post. Wall thickness 0.8-1.1 1.4 IV septum (thickness) 0.7-1.2 1.4 Post. Wall excursion 0.72-1.3 NORMAL Septal motion NORMAL Systolic motion R. Ventricular cavity 1.5-2.0 NORMAL LVEF 60% 74% Paradoxical septal wall motion NORMAL 2-D : ENLARGED LEFT ATRIAL CAVITY--CALCIFIC AORTIC VALVE AND MITRAL VALVE ANNULUS, NORMAL LEFT VENTRICLE SIZE AND LEFT VENTRICLE CONTRACTILITY--NO EFFUSION, NO THROMBUS--NO STENOSIS OF VALVES M-MODE: MV: MILD CALCIFIC MITRAL VALVE ANNULUS AV: MILDLY CALCIFIC AORTIC VALVE LEAFLETS TV: NORMAL PV: CHAMBER SIZE: ENLARGED LEFT ATRIAL AND RIGHT VENTRICLE CAVITIES WALL MOTION: NORMAL PERICARDIUM: NORMAL INTERPRETATION: 1. LEFT VENTRICLE HYPERTROPHY MODERATE WITH ENLARGED LEFT ATRIAL CAVITY 2. ENLARGED RIGHT VENTRICLE CAVITY 3. NORMAL LEFT VENTRICLE CONTRACTILITY AND LEFT VENTRICLE SIZE 4. MILDLY CALCIFIC MITRAL VALVE ANNULUS AND AORTIC LEAFLETS MTDD
--- NOTE | 2022-08-05 13:54 | CONS ---
DATE OF CONSULTATION: 08/02/22 REASON FOR CONSULTATION: Prolonged QT interval. HISTORY OF PRESENT ILLNESS: 62-year-old white female hospitalized with acute gastritis and hypertension. The patient's EKG is showing prolonged QT intervals. The hospitalized requested a consult for prolonged QT interval. REVIEW OF SYSTEMS: CONSTITUTIONAL: No night sweats. No fatigue, malaise, lethargy. No fever or chills. HEENT: Eyes: No visual changes. No eye pain. No eye discharge. ENT: No sinus drainage. No epistaxis. No sinus pain. No sore throat. No odynophagia. No ear pain. No congestion. RESPIRATORY: No cough, no congestion. No hemoptysis. No shortness of breath. CARDIOVASCULAR: No angina symptoms. No CHF symptoms. No atypical chest pain for CAD. No palpitations. No orthopnea. GASTROINTESTINAL: No abdominal pain. No nausea or vomiting. No diarrhea or constipation. No hematemesis. No hematochezia. GENITOURINARY: No urgency. No frequency. No dysuria. No hematuria. No obstructive symptoms. No discharge. No pain. No significant abnormal bleeding. MUSCULOSKELETAL: No musculoskeletal pain. No joint swelling. NEUROLOGICAL: No headache. No neck pain. No syncope. No seizures. No dizziness. PSYCHIATRIC: Not anxious. No depression. No suicidal thoughts. No homicidal thoughts. SKIN: No rash. No lesions. No wounds. ENDOCRINE: No unexplained weight loss. No weight gain. HEMATOLOGIC/LYMPHATIC: No anemia. No purpura. No petechiae. No prolonged or excessive bleeding. No palpable lymph nodes. MEDICATIONS: Albuterol inhaler Plavix Trazodone Ozempic Aspirin Atorvastatin Keflex Clonidine Cymbalta Prozac Sitagliptin Sulfate Ibuprofen Oxycodone Januvia Valacyclovir ALLERGIES: LISINOPRIL PAST MEDICAL/SURGICAL HISTORY: The patient had left total knee replacement four weeks ago and recovering Diabetes mellitus Obesity Hypertension Dyslipidemia Depression SOCIAL/PERSONAL/FAMILY HISTORY: The patient lives by herself, smokes. No alcohol abuse. She does all activities of daily living. She drives a car. She use to live in [place] and moved to this area recently. PHYSICAL EXAMINATION: GENERAL: The patient is oriented to time, place and person. VITAL SIGNS: Temperature 97.3, pulse 60, respiratory rate 16, blood pressure 116/72, pulse ox 100% on room air. HEENT: Head normocephalic, atraumatic. Eyes: Extraocular muscles are intact. Pupils are equal, round and reactive to light and accommodation. Ears: No lesions. Nose appeared normal. Throat: No exudate or erythema. NECK: Supple. No JVD, no carotid bruit. No lymphadenopathy or thyromegaly. LUNGS: Decreased breath sounds but clear to auscultation. Percussion note normal. Chest symmetrical. HEART: S1, S2, no S3. No murmurs. No cyanosis or clubbing. No ascites. Pulses: Dorsalis pedis and posterior tibial pulses +1 to +2 bilaterally. ABDOMEN: Soft. Nontender. Bowel sounds active. No CVA tenderness. No mass felt. EXTREMITIES: Pulses are very feeble; in fact, unable to palpate posterior tibial pulses. No edema. Full range of motion of all extremities, equal. NEUROLOGIC: No focal deficit. Cranial nerves II through XII are grossly intact. No headache, no double vision or headache. SKIN: Not dry. Intact. Turgor - normal. LYMPHATIC: No palpable lymph nodes/no lymphedema. MUSCULOSKELETAL: Normal joints with no swelling. Muscle tone is normal. LABS: Hemoglobin 10.2, hematocrit 33, WBC 9,400, normal differential. Creatinine 1.3, BUN 26, potassium 4.2. TSH, T4 normal. ASSESSMENT: 1. Prolonged QT interval, etiology could be from antidepressant Prozac. No evidence of any arrhythmias. History of coronary artery disease. 2. Severe peripheral arterial disease status post vascular surgery a few years ago at [place]. 3. Diabetes mellitus, insulin dependent. 4. Status post left knee replacement likely may be the cause of anemia. 5. Obesity. 6. Dyslipidemia. 7. Depression. RECOMMENDATIONS: 1. I will discuss with Dr. Wright today Metoprolol 12.5 twice a day, against arrhythmias that could happen with QT interval. 2. Will cut down the Clonidine to 0.1 mg twice a day. 3. Add Losartan 25 mg p.o. q.a.m. for kidney protection. 4. Continue Statin, known HDL cholesterol should be less than 100. 5. Avoid antihistamines, avoid macrolides like Erythromycin, Azithromycin. 6. Avoid antipsychotics, antifungal. 7. Give Motrin 10 mg. 8. Wean patient off Prozac if possible and start the patient on other SSRI like Zoloft which has least effect on QT interval. 9. Patient to have Holter Monitor as an outpatient for 15 days, evaluate her for any arrhythmias. 10. Echo was done this morning which showed normal LV contractility, enlarged LA cavity. The patient does not have any dilated cardiomyopathy. She has less chances of going into any significant arrhythmias. 11. Carotid ultrasound. 12. This patient needs stress test as an outpatient for evaluation of her ASHD and history of coronary artery disease. 13. CAD with risk factors discussed. 14. PAD with risk factors discussed. 15. Diabetes discussed in detail, foot care and eye care discussed. 16. Continue close followup with primary care for referral. WILLIAMSD
--- NOTE | 2022-08-05 14:10 | CONS ---
DATE OF CONSULTATION: 08/03/22 REASON FOR CONSULTATION: 62 year old black female hospitalized with nausea and vomiting. Incidental finding was prolonged QT interval. REVIEW OF SYSTEMS: CONSTITUTIONAL: No night sweats. No fatigue, malaise, lethargy. No fever or chills. HEENT: Eyes: No visual changes. No eye pain. No eye discharge. ENT: No sinus drainage. No epistaxis. No sinus pain. No sore throat. No odynophagia. No ear pain. No congestion. RESPIRATORY: No cough, no congestion. No hemoptysis. No shortness of breath. CARDIOVASCULAR: No angina symptoms. No CHF symptoms. No atypical chest pain for CAD. No palpitations. No orthopnea. GASTROINTESTINAL: No abdominal pain. No nausea or vomiting. No diarrhea or constipation. No hematemesis. No hematochezia. GENITOURINARY: No urgency. No frequency. No dysuria. No hematuria. No obstructive symptoms. No discharge. No pain. No significant abnormal bleeding. MUSCULOSKELETAL: No musculoskeletal pain. No joint swelling. NEUROLOGICAL: No headache. No neck pain. No syncope. No seizures. No dizziness. PSYCHIATRIC: Not anxious. No depression. No suicidal thoughts. No homicidal thoughts. SKIN: No rash. No lesions. No wounds. ENDOCRINE: No unexplained weight loss. No weight gain. HEMATOLOGIC/LYMPHATIC: No anemia. No purpura. No petechiae. No prolonged or excessive bleeding. No palpable lymph nodes. PHYSICAL EXAMINATION: GENERAL: The patient is oriented to time, place and person. VITAL SIGNS: Temperature 98, pulse 80, respiratory rate 15, blood pressure 124/72, pulse ox 98% on room air. HEENT: Head normocephalic, atraumatic. Eyes: Extraocular muscles are intact. Pupils are equal, round and reactive to light and accommodation. Ears: No lesions. Nose appeared normal. Throat: No exudate or erythema. NECK: Supple. No JVD, no carotid bruit. No lymphadenopathy or thyromegaly. LUNGS: Decreased breath sounds and clear. HEART: S1, S2, no S3. No murmurs. No cyanosis or clubbing. No ascites. Pulses: Dorsalis pedis and posterior tibial pulses +1 to +2 bilaterally. ABDOMEN: Soft. Nontender. Bowel sounds active. No CVA tenderness. No mass felt. EXTREMITIES: No edema. Full range of motion of all extremities, equal. NEUROLOGIC: No focal deficit. Cranial nerves II through XII are grossly intact. No headache, no double vision or headache. SKIN: Not dry. Intact. Turgor - normal. LYMPHATIC: No palpable lymph nodes/no lymphedema. MUSCULOSKELETAL: Normal joints with no swelling. Muscle tone is normal. ASSESSMENT: 1. Prolonged QT interval and a lot of other commodities involving cardiovascular status with history of diabetes mellitus, poorly controlled. 2. History of hypertension 3. Dyslipidemia 4. Severe peripheral arterial disease, status post surgery on femoral popliteal system. During the stay the patient did not have any arrhythmias noted. RECOMMENDATIONS: 1. Wean patient off Prozac, now she is on 10 mg. Zoloft is the safest. 2. Advised to avoid Azithromycin, antifungal medicine, antihistamines, anti- asthmatics and antipsychosis medicines. 3. A1C goal 6-7 discussed with the patient. 4. BMI 36. Weight loss diet discussed. Exercise program discussed. 5. Needs stress echo. 6. Tati to protect her from arrhythmias because of prolonged QT. 7. Metoprolol 12.5 mg PO twice a day. 8. Wean patient off Clonidine. She is going to be 0.1 twice a day. 9. Losartan 25 PO Q a.m. for kidney protection because she is diabetic. 10. Atorvastatin, HDL goal should be less than 100. 11. Continue Motrin which is an extremely high dose. Patient is prone to it because of that; she is on Plavix and Aspirin 12. Scan report reviewed and has mild to moderate occlusive disease. 13. Patient needs to be followed by vascular surgeon and have arterial study done. 14. She has chronic kidney disease and needs nephrologic evaluation . Patent is advised to be seen in 3-5 days by family care provider. Thank you very much for the referral. BARAK
--- NOTE | 2022-08-05 14:37 | PN ---
08/03/22 CONSULT LEVEL 5 MTDD
== END 2022-08-03 14:00 | disposition home or self-care (01) | DRG 305 ==
LOC: ED 10:23 → MEDSURG A 16:18
PROVIDERS: ADMIT Emergency Medicine Emergency Medical Services; ATTEND Surgery
DX: I73.9 Peripheral vascular disease, unspecified; E78.5 Hyperlipidemia, unspecified; N18.9 Chronic kidney disease, unspecified; I10 Essential (primary) hypertension; Z79.82 Long term (current) use of aspirin; Z68.30 Body mass index [BMI] 30.0-30.9, adult; K21.9 Gastro-esophageal reflux disease without esophagitis; Z95.820 Peripheral vascular angioplasty status with implants and grafts; E11.65 Type 2 diabetes mellitus with hyperglycemia; Z20.822 Contact with and (suspected) exposure to COVID-19; Z79.84 Long term (current) use of oral hypoglycemic drugs; E83.42 Hypomagnesemia; R11.2 Nausea with vomiting, unspecified; Z51.81 Encounter for therapeutic drug level monitoring; Z79.899 Other long term (current) drug therapy; G47.00 Insomnia, unspecified; E66.9 Obesity, unspecified; Z72.0 Tobacco use; E11.22 Type 2 diabetes mellitus with diabetic chronic kidney disease; R11.10 Vomiting, unspecified; Z96.659 Presence of unspecified artificial knee joint; E87.6 Hypokalemia; I45.81 Long QT syndrome; I16.0 Hypertensive urgency